=== PATIENT | male | born 1980 | race Caucasian/White ===

== ENCOUNTER 2017-12-10 09:43 | Emergency (ER) | payer OTHER, SELFPAY ==
[2017-12-10 09:44] VITALS: BP 159/83; PULSE 92; RESP 16; TEMP 36.1; O2SAT 95; BMI 42.5
--- NOTE | 2017-12-10 10:05 | ED.DCSUM_ITS ---
- ER Visit Summary Date of Service: 12/10/17 Chief Complaint: Anxiety History of Present Illness: 37-year-old male presents with anxiety and shakiness. He states that he has a history of anxiety and was previously on an anxiety medication from his primary care physician but stopped taking it 5 months ago. He has been under increased emotional stress going through a difficult divorce and custody landeros and he is also losing his job this Tuesday. He has been feeling quite anxious and having difficulty sleeping but denies depression or suicidal thoughts/ideation. He drinks a fairly large amount of alcohol daily and has been trying to cut back recently and feels more shaky when he tries to cut back. His symptoms seem to resolve when he drinks again. Last night he [place] alcohol [place] bowling alley and actually felt much better but this morning felt shaky again. He denies history of withdrawal seizures. Physical Examination: Vitals are within normal limits. He is not in distress. Neck is supple. Heart tones are regular and without murmur. Lungs are clear bilaterally. Abdomen is soft and nontender. No focal or lateralizing neuro findings. Mental status exam-he does appear somewhat anxious but he has normal thought content. He does not appear intoxicated. He is answering questions appropriately. Judgment is intact. Adamantly denies suicidal thoughts or ideation. He is future oriented. Test Results: CMP remarkable for slight elevation of liver enzymes, likely from his chronic alcohol use and a CBC remarkable for slight increase in [facility] Emergency Department Course and Treatment: Given oral Ativan here with marked improvement of his symptoms. He does have a ride home. His , both of his parents, and his teenage son are in the room. I spoke with them in private and they are not concerned for suicidal risk. He has no history of depression and he adamantly denies any intention of self-harm at this time. His symptoms do appear consistent with anxiety and alcohol withdrawal. He is trying to cut back on alcohol but he is not interested in any form of counseling or detox at this time. He has a completely normal neurologic exam and no headaches. No indication for a CT at this point. I think he can safely be discharged home and he is planning to see his doctor on Tuesday to resume his anxiety medication. He does believe that he still has some at home that he can start right away. I will write him for a few hydroxyzine tablets to use as needed Treatment Plan: Follow-up with primary care doctor on Tuesday Disposition: Home stable condition Impression: Initial encounter anxiety, initial encounter alcohol withdrawal This note was generated with [employer] dictation software. It may contain incorrect words, spelling, and punctuation that were not noted in review of the chart prior to signing ED Disposition - Plan for ED Patient: Chief Complaint: Anxiety Instructions: ED Stress React, ED Withdrawal Alcohol Prescriptions: hydrOXYzine tablet [Atarax tablet] 10 mg PO 4X/DAY PRN PRN #10 tablet PRN Reason: Anxiety Referrals: Marian Golden [Primary Care Provider] - As soon as possible
[2017-12-10] MEDS: LORazepam 1 MG Tablet 2 MG PO (10:42)
[2017-12-10 11:32] LABS: Hematocrit 47.8 % (40-54); Hemoglobin 16.2 g/dl (13.0-16.5); Mean Corp Hgb Conc 33.9 g/gl (32-36); Mean Corpuscular Hgb 33.3 pg (27.0-32.0); Mean Corpuscular Volume 98.4 fL (80-94); Mean Platelet Vol. 10.7 fl (6.2-12.0); Platelet Count 282 K/mm3 (150-450); RBC Distribution Width CV 13.1 % (11.6-14.6); RBC Distribution Width SD 47.4 fl (35.1-43.9); Red Blood Count 4.86 M/mm3 (4.6-6.2); Scan Indicated on CBC? Y/N NO; White Blood Count 8.4 K/mm3 (4.4-11.0)
[2017-12-10 11:41] LABS: ALB/GLOB Ratio 0.8 RATIO (0.9-2.4); AST(SGOT) 65 U/L (15-37); Alanine Aminotransfer ALT/SGPT 115 U/L (16-61); Albumin, Serum 3.8 g/dL (3.2-5.0); Alkaline Phosphatase 80 U/L (45-117); Anion Gap 8 (5-15); BUN 9 mg/dL (7-18); BUN/Creat Ratio 10.1 RATIO (10-20); Calcium,Total 8.6 mg/dL (8.5-10.1); Chloride 102 mmol/L (98-107); Creatinine, Serum 0.89 mg/dL (0.70-1.30); EST Glomerular Filtration Rate 101 mL/min (>60); Est Glom Filt Rate - Afr Amer 122 mL/min (>60); Estimated Creatinine Clearance 107.81 ml/min; Globulin 4.5 g/dL (2.2-4.2); Glucose 119 mg/dL (74-106); Potassium 4.3 mmol/L (3.5-5.1); Protein, Total 8.3 g/dL (6.4-8.2); Sodium Level 136 mmol/L (136-145)
[2017-12-10 12:42] VITALS: BP 148/72; PULSE 82; RESP 16; O2SAT 98
== END 2017-12-10 12:43 | disposition home or self-care (01) ==
PROVIDERS: Emergency Provider Emergency Medicine; PCP Family Medicine
DX: F41.9 Anxiety disorder, unspecified (principal); F10.239 Alcohol dependence with withdrawal, unspecified
CPT/HCPCS: 80053; 85027; 99282

== ENCOUNTER 2019-08-28 13:20 | Emergency (ER) | payer SELFPAY ==
[2019-08-28 13:20] VITALS: BP 138/90; PULSE 71; RESP 18; TEMP 36.6; O2SAT 96; BMI 37.6
--- NOTE | 2019-08-28 14:11 | RAD_ITS ---
STUDY: X-RAY - LEFT HAND REASON FOR EXAM: Male, 39 years old. Laceration across the third MCP joint. TECHNIQUE: 3 view(s) of the hand. COMPARISON: None. FINDINGS: No acute fracture, dislocation or osseous destruction. No significant joint space narrowing. No significant productive changes. Mild soft tissue swelling. No radiopaque foreign body. RAD/Hand Min 3 Views IMPRESSION: Left hand intact Mild soft tissue swelling without radiopaque foreign body Electronically Signed: Ag Green DO at 14:30 EST Tel , Service support ,
--- NOTE | 2019-08-28 14:28 | ED.VISSUMM ---
- ER Visit Summary Date of Service: 08/28/19 Chief Complaint: [Laceration to left hand] History of Present Illness: The patient is a 39 M [does the emergency department complaint of laceration to left hand that occurred prior to arrival in emergency department. 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 Patient is right-hand dominant. Last tetanus shot was about 6 years ago. Patient is right-hand dominant. He has no medical history.] Physical Examination: [Hand-patient has a 4 cm laceration over the dorsum of the left hand between the ring finger and middle finger. It appears to be relatively superficial into the fat and does not appear to involve any tendons. He has normal range of motion flexion extension of all digits against resistance. The wound edges appear to be tattooed and discolored and is at some particular debris within the wound. Neurovascular intact.] Test Results: [3 the right hand obtained showed no obvious foreign bodies.] Emergency Department Course and Treatment: [Patient repair-wound sterilely draped and prepped. Wound cleansed with Shur-Clens and irrigated with copious saline. Initially anesthetized with lidocaine 1% total of 4 cc. I was able to remove large amount of particulate debris from the wound and irrigated copiously. Using 5-0 nylon a total of 5 single ruptured sutures placed with good wound edge approximation. Patient tired procedure well. Patient received Adacel tetanus booster. He was given a dose of Keflex because of the dirty wound.] Treatment Plan: [We will be started on Keflex. Patient advised to follow-up with primary care physician in 10 days for suture removal. Patient advised to return if increasing pain, redness, swelling, purulent drainage, or conditions worsen anyway.] Disposition: [Home in stable condition.] Impression: [Left hand laceration 4 cm-simple repair] This note was generated with [employer] dictation software. It may contain incorrect words, spelling, and punctuation that were not noted in review of the chart prior to signing ED Disposition - Plan for ED Patient: Referrals: Marian Golden [Primary Care Provider] -
--- NOTE | 2019-08-28 14:31 | ED.DEP ---
ED Disposition - Plan for ED Patient: Instructions: LACERATION, Hand Prescriptions: Cephalexin [Keflex] 500 mg PO Q6 #40 cap Prescription Printed Referrals: Marian Golden [Primary Care Provider] - 10 Day for suture removal
[2019-08-28] MEDS: Cephalexin 250 MG Capsule 500 MG PO (14:52)
[2019-08-28] MEDS: Diphth,Pertuss(Acell),Tet Vac 0.5 ML Vial IM (14:53)
[2019-08-28 15:00] VITALS: PULSE 89; RESP 15; O2SAT 99
== END 2019-08-28 15:59 | disposition home or self-care (01) ==
LOC: ED 14:26
PROVIDERS: Emergency Provider Emergency Medicine; Family Provider Family Medicine; PCP Family Medicine
DX: S61.422A Laceration with foreign body of left hand, initial encounter (principal); W26.8XXA Contact with other sharp object(s), not elsewhere classified, initial encounter; Y93.89 Activity, other specified
CPT/HCPCS: 12002; 73130; 90471; 90715; 99283